=== PATIENT | female | born 1980 | race Caucasian/White ===

== ENCOUNTER 2021-10-28 11:16 | Day surgery (SDC) | payer BC ==
[2021-10-24 09:15] VITALS: BMI 34.4
[~2021-10-28 11:16] MED LIST: HYDROmorphone 0.5 MG/0.5 ML SYRINGE IVP PRN; LACTATED RINGERS 1,000 ML IV SCH; LIDOCAINE 1% (10MG/ML) FOR IV START INTRADERMA PRN; ONDANSETRON 4 MG/2 ML VIAL IVP PRN
[2021-10-28 11:49] VITALS: TEMP 97.2
[2021-10-28] MEDS ORDERED: PROPOFOL 10 MG/ML 20 ML VIAL IV ONE (12:17)
[2021-10-28 12:51] VITALS: RESP 18
[2021-10-28 12:59] LABS: Basophils # (A) 0.1 k/uL (0-0.2); Basophils % (A) 1 %; Eosinophils # (A) 0.4 k/uL (0-0.7); Eosinophils % (A) 3 %; HCT 40.8 % (34.0-46.0); HGB 14.1 gm/dL (11.4-16.0); Lymphocytes # (A) 2.7 k/uL (1.0-4.8); Lymphocytes % (A) 21 %; MCH 29.8 pg (25.0-35.0); MCHC 34.6 g/dL (31.0-37.0); MCV 86.2 fL (80.0-100.0); Mean Platelet Volume 8.5; Monocytes # (A) 0.8 k/uL (0-1.0); Monocytes % (A) 6 %; Neutrophils # (A) 8.8 k/uL (1.3-7.7); Neutrophils % (A) 68 %; Platelet Count 775 k/uL (150-450); RBC 4.73 m/uL (3.80-5.40); RDW 13.4 % (11.5-15.5); Reticulocyte % 2.2 % (0.5-2.0); WBC 12.8 k/uL (3.8-10.6)
[2021-10-28 13:07] VITALS: BP 116/75; PULSE 76
--- NOTE | 2021-10-28 13:38 | PCN ---
PROCEDURE NOTE DATE OF SERVICE: October 28, 2021. PROCEDURE: Bone marrow aspirate and biopsy. INDICATION: Persistent leukocytosis and thrombocytosis. The patient has a history of splenectomy as well. DESCRIPTION OF PROCEDURE: After obtaining consent from the patient, the procedure was performed in the endoscopy suite under general anesthesia performed by anesthesia team. The patient was placed on the left lateral decubitus position. The right posterior superior iliac crest was localized. Skin was prepped with ChloraPrep, all sterile procedures were followed. About 2 mL of 2% Xylocaine was used for local anesthetic. Monoject needle was inserted. 10 mL aspirate and about 0.5 cm core biopsy was obtained without any difficulties. Pressure applied afterwards. There was negligible blood loss. Patient tolerated procedure very well without any immediate complications. MMODL / IJN: [id number] /
== END 2021-10-28 13:22 | disposition home or self-care (01) ==
LOC: OR 11:16
PROVIDERS: ATTEND Internal Medicine Hematology & Oncology
DX: D72.829 Elevated white blood cell count, unspecified (principal); D75.839 Thrombocytosis, unspecified
CPT/HCPCS: 38222; 81025; 85025; 85045; J2704

== ENCOUNTER → 2022-05-22 | Outpatient (CLI) | payer OTHER ==
--- NOTE | 2022-05-25 18:15 | MM ---
Reason for Exam: Screening (asymptomatic). Baseline mammogram. Patient History: Menarche at age 13. Last menstrual period: 05/19/2022 Risk Values: Yaima 5 year model risk: 0.4%. NCI Lifetime model risk: 7.3%. Prior Study Comparison: Patient's first Mammogram. No prior studies available for comparison. Tissue Density: The breast tissue is heterogeneously dense. This may lower the sensitivity of mammography. Findings: Analyzed By CAD. Upper outer quadrant anterior left breast warrants further magnification views. Nodularity central posterior left breast for which further evaluation is recommended. Additional nodular asymmetric density medial subareolar right cc view without clear correlate on the MLO view. Prominent rounded but nonenlarged lymph node right axillary tail measuring 1.0 cm. Overall Assessment: Incomplete: need additional imaging evaluation, BI-RAD 0 Management: Special View Mammogram of both breasts. Diagnostic Breast Ultrasound of both breasts. Additional views to include magnification and 3-D lateral views for the left breast microcalcifications. Additional spot compression views for the posterior left breast nodularity. Also, additional views right breast to include spot 3-D CC, 3-D CC rolled lateral, and 3-D lateral views. Bilateral whole breast ultrasound. Particular attention to the right medial subareolar region, right axillary tail, and posterior central left breast. [facility] will attempt to contact patient to return for supplemental views and ultrasound if indicated. Electronically signed and approved by: Marcel Hernandez M.D. Radiologist
== END | disposition home or self-care (01) ==
LOC: RADMAMWWP 14:21
PROVIDERS: ATTEND Family Medicine
DX: Z12.31 Encounter for screening mammogram for malignant neoplasm of breast (principal)
CPT/HCPCS: 77067

== ENCOUNTER → 2022-06-03 | Outpatient (CLI) | payer OTHER ==
--- NOTE | 2022-06-03 17:01 | USB ---
Reason for Exam: Additional evaluation requested from abnormal screening. Patient History: Menarche at age 13. Patient has no children. Risk Values: Yaima 5 year model risk: 0.7%. NCI Lifetime model risk: 11.0%. Technique: Method: Whole Breast Handheld. Prior Study Comparison: 05/22/2022 Bilateral MG screening mammo w CAD, [facility]. Findings: The whole breast of both breasts, the axilla of both breasts and the retroareolar of both breasts were scanned. Within the right breast 3 cm from the nipple 12:00 position is a 0.9 x 0.4 x 0.7 cm anechoic nodule with good through transmission. Small cyst. An additional cyst is at the 3:00 position 5 cm from the nipple measuring 1.0 x 0.8 x 1.2 cm. 2 large cyst with good through transmission and posterior wall enhancement at the 8:00 position 7 cm from the nipple measuring 2.3 x 1.7 x 2.2 cm at the 9:00 position 5 cm from the nipple measuring 3.5 x 2.5 x 3.1 cm. Within the left breast 3:00 position is an irregular cystlike area 5 cm nipple measuring 1.3 x 0.7 x 1.1 cm. At the 3:00 position 7 cm from the nipple is a 2.0 x 0.9 x 1.6 cm cystlike area. In the posterior left breast 5:00 position 12 cm from the nipple is a elongated hypoechoic area with a solid nodule. This measures 1.8 x 0.3 cm. The small solid-appearing component measures 0.3 cm. This may correlate with the mammographic finding posterior left breast. Biopsy of this area is recommended with post clip placement correlation. Overall Assessment: Suspicious, BI-RAD 4 Management: Ultrasound Core Biopsy of the left breast. A clinical breast exam by your physician is recommended on an annual basis and results should be correlated with mammographic findings. This exam should not preclude additional follow-up of suspicious palpable abnormalities. Results were given to the patient verbally at the time of exam. Electronically signed and approved by: Jamie Barnes D.O. Radiologis
--- NOTE | 2022-06-05 08:33 | MM ---
Reason for Exam: Additional evaluation requested from abnormal screening. Last screening mammogram was performed less than 1 month ago. Patient History: Menarche at age 13. Patient has no children. Last menstrual period: 05/18/2022 Risk Values: Yaima 5 year model risk: 0.7%. NCI Lifetime model risk: 11.0%. Prior Study Comparison: 05/22/2022 Bilateral MG screening mammo w CAD, [facility]. Tissue Density: The breast tissue is extremely dense which could obscure a lesion on mammography. Findings: Analyzed By CAD. Parenchymal pattern is essentially stable. There is a persistent density in the posterior left middle breast. Ultrasound of this area is recommended. There is a heterogenous group of calcifications in the upper outer aspect left breast these are highly suggestive of malignancy biopsy is recommended. Large rounded densities with partially obscured margins or within the right breast. The largest measures 3.6 cm in the inferior lateral anterior portion. Ultrasound of this area is recommended. Overall Assessment: Highly suggestive of malignancy, BI-RAD 5 Management: Stereotactic Core Biopsy of the left breast. Diagnostic Breast Ultrasound of both breasts. A negative mammogram report should not preclude additional follow up of suspicious palpable abnormalities. Patient should continue monthly self breast exam. A clinical breast exam by your physician is recommended on an annual basis and results should be correlated with mammographic findings. Electronically signed and approved by: Jamie Barnes D.O. Radiologis
== END | disposition home or self-care (01) ==
LOC: RADMAMWWP 15:00
PROVIDERS: ATTEND Family Medicine
DX: R92.8 Other abnormal and inconclusive findings on diagnostic imaging of breast (principal)
CPT/HCPCS: 77066

== ENCOUNTER → 2022-06-15 | Day surgery (SDC) | payer OTHER ==
[2022-06-15 11:46] VITALS: BP 122/84; PULSE 80; RESP 16; TEMP 98.2
--- NOTE | 2022-06-19 11:02 | MM ---
Risk Values: Yaima 5 year model risk: 1.1%. NCI Lifetime model risk: 13.4%. Prior Study Comparison: 05/22/2022 Bilateral MG screening mammo w [facility]. 06/03/2022 Bilateral MG work up mamm w CAD [facility]. Pathology Description: Location: upper outer quadrant. Marker Left Behind. Specimen Radiograph. Calcium Found: Yes Approach: Lateral to Medial Needle Type: Eviva Cores: 7 Skin Nicks: 1 Gauge: 9 The procedure of stereotactic guided core biopsy was explained to the patient. Benefits, alternatives, and risks were discussed. An informed consent was then obtained. The shortness pathway for biopsy was chosen. Shortness pathway was lateral approach. I performed the localization and procedure. A vacuum assisted biopsy gun was used to obtain multiple core samples. The patient tolerated the procedure well without any immediate complication. The patient was kept in the radiology department for short stay after the procedure and then discharged home in stable condition. Targeted calcifications are identified in specimen mammogram. Post biopsy mammogram shows the clip to appear in satisfactory position relative to the targeted area of concern on the preprocedure images. Impression: SUCCESSFUL, UNCOMPLICATED STEREOTACTIC GUIDED CORE BIOPSY OF AREA OF CONCERN IN THE LEFT BREAST. Pathology Results: Result: Malignant, Ductal carcinoma in situ, comedo type. 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 See Surgical Pathology Cancer Case Summary and Comment. Overall Assessment: Malignant Management: Surgical Consultation of the left breast. Electronically signed and approved by: Kemal Gallo D.O.
== END ==
LOC: RADMAMWWP 09:59
PROVIDERS: ATTEND Surgery
DX: D05.12 Intraductal carcinoma in situ of left breast (principal); Z17.0 Estrogen receptor positive status [ER+]; N64.1 Fat necrosis of breast; R92.1 Mammographic calcification found on diagnostic imaging of breast
CPT/HCPCS: 88305; 88342; 88341; 19081; A4648; J2001

== ENCOUNTER → 2022-06-15 | Day surgery (SDC) | payer OTHER ==
--- NOTE | 2022-06-19 10:59 | MM ---
Reason for Exam: Post Procedure Mammogram. Last screening mammogram was performed less than 1 month ago. Patient History: Menarche at age 13. Patient has no children. Risk Values: Yaima 5 year model risk: 0.7%. NCI Lifetime model risk: 11.0%. Prior Study Comparison: 05/22/2022 Bilateral MG screening mammo w [facility]. 06/03/2022 Bilateral MG work up mamm w CAD [facility], [facility]. Tissue Density: Left: The breast tissue is extremely dense which could obscure a lesion on mammography. Pathology Description: Location: 5 o'clock, lower outer quadrant. The procedure of ultrasound guided core biopsy was explained to the patient. Benefits, alternatives, and risks were discussed. An informed consent was then obtained. The patient was placed in supine positioning for imaging and for the procedure. The overlying skin was prepped and draped in usual sterile fashion. Lidocaine buffered with epinephrine was used as anesthetic into the skin and subcutaneous tissue up to area of concern in the left breast. Under ultrasound guidance, a 12-gauge vacuum assisted biopsy gun device was used to obtain 4 core samples. Following this, a biopsy clip (coil) was left in lesion. The patient tolerated the procedure well without any immediate complication. The patient was kept in the radiology department for short stay after the procedure and then discharged home in stable condition. Postprocedure mammogram: The patient was transferred to mammography for physician ordered post procedure mammogram for clip placement verification. Impression: Successful, uncomplicated ultrasound guided core biopsy of area of concern in the left breast, full pathology results to follow. Pathology Results: Result: Benign, Fibrocystic change. LEFT BREAST, FIVE O'CLOCK, ULTRASOUND GUIDED NEEDLE CORE BIOPSY: Benign breast with fibrocystic changes. Overall Assessment: Benign Assessment: MG diagnostic mammo LT wo CAD. - Left: Benign, BI-RAD 2. Management: Diagnostic Breast Ultrasound of the left breast in 6 months. Electronically signed and approved by: Preston Fairbanks
== END ==
LOC: RADUSWWP 10:03
PROVIDERS: ATTEND Surgery
DX: N60.12 Diffuse cystic mastopathy of left breast (principal)
CPT/HCPCS: 88305; 77065; 19083; A4648

== ENCOUNTER → 2022-08-13 | Outpatient (CLI) | payer OTHER | END | disposition home or self-care (01) | LOC: LABWHC1 09:10 | PROVIDERS: ATTEND Radiology Radiation Oncology | DX: C50.412 Malignant neoplasm of upper-outer quadrant of left female breast (principal) | CPT/HCPCS: 81025 ==

== ENCOUNTER 2022-08-21 09:33 | Day surgery (SDC) | payer OTHER ==
[2022-08-18 15:38] VITALS: BMI 37.5
[~2022-08-21 09:33] MED LIST changes: +ACETAMINOPHEN TAB 500 MG TAB PO PRN; +HEPARIN SODIUM,PORCINE/PF 5,000 UNIT/0.5 ML SYRINGE SQ PRN; -HYDROmorphone 0.5 MG/0.5 ML SYRINGE IVP PRN; -LACTATED RINGERS 1,000 ML IV SCH; -LIDOCAINE 1% (10MG/ML) FOR IV START INTRADERMA PRN; -ONDANSETRON 4 MG/2 ML VIAL IVP PRN; +Pre Op ABX Message 1 EACH MISC MISCELLANE ONE
[2022-08-21] MEDS ORDERED: LACTATED RINGERS 1,000 ML IV ONE (10:20)
[2022-08-21] MEDS ORDERED: DEXAMETHASONE SOD PHOSPHATE 4 MG/ML 1 ML VIAL IVP ONE (10:20)
[2022-08-21] MEDS ORDERED: ONDANSETRON 4 MG/2 ML VIAL ONE (10:22)
--- NOTE | 2022-08-21 10:48 | P.GSHP ---
History of Present Illness H&P Date: 08/21/22 Chief Complaint: Left breast cancer 41-year-old female with recent diagnosis of left breast DCIS. The patient underwent recent lumpectomy. The anterior margin was quite close. For that reason the patient is here for re-lumpectomy today. No other complaints. Past Medical History Past Medical History: Cancer, GERD/Reflux Additional Past Medical History / Comment(s): left breast cancer History of Any Multi-Drug Resistant Organisms: None Reported Past Surgical History: Orthopedic Surgery Additional Past Surgical History / Comment(s): SPLEENECTOMY 2000. GANGLION CYSTS REMOVED -LT WRIST. LT BREAST LUMPECTOMY-07/24/22 Past Anesthesia/Blood Transfusion Reactions: No Reported Reaction Smoking Status: Former smoker - Past Family History Mother Family Medical History: No Reported History Medications and Allergies Home Medications Medication Instructions Recorded Confirmed Type Esomeprazole Magnesium [NexIUM] 20 mg PO DAILY 06/04/22 08/21/22 History Allergies Allergy/AdvReac Type Severity Reaction Status Date / Time No Known Allergies Allergy Verified 08/18/22 15:31 Surgical - Exam Vital Signs Temp Pulse Resp BP Pulse Ox 97.4 F L 82 14 130/64 98 08/21/22 10:20 08/21/22 10:20 08/21/22 10:20 08/21/22 10:20 08/21/22 10:20 Physical exam: General: Well-developed, well-nourished HEENT: Normocephalic, sclerae nonicteric Right breast: No masses or adenopathy Left breast: Previous scars noted Abdomen: Nontender, nondistended Extremities: No edema Neuro: Alert and oriented Assessment and Plan (1) Breast cancer, left Narrative/Plan: 41-year-old female with left breast DCIS. Patient has a close anterior margin. Her today for reexcision. We'll proceed with re-lumpectomy. Risks of bleeding, infection, scarring, numbness, recurrence, possible need for further surgery. She understands and wishes to proceed. Current Visit: No Status: Acute Code(s): C50.912 - MALIGNANT NEOPLASM OF UNSPECIFIED SITE OF LEFT FEMALE BREAST SNOMED Code(s): 912375663
[2022-08-21] MEDS ORDERED: BUPIVACAIN-EPI 0.25%-1:200,000 30 ML VIAL SQ ONE ×2 (11:37→12:12)
[2022-08-21] MEDS ORDERED: PHENYLEPHRINE-0.9% NACL SYG 1,000 MCG/10 ML SYRINGE ONE (11:38)
[2022-08-21] MEDS ORDERED: PROPOFOL 10 MG/ML 20 ML VIAL IV ONE (11:38)
[2022-08-21] MEDS ORDERED: MIDAZOLAM 2 MG/2 ML VIAL ONE (11:38)
[2022-08-21] MEDS ORDERED: HYDROmorphone (PF) 1 MG/ML ONE (11:38)
[2022-08-21] MEDS ORDERED: LIDOCAINE 2% INJ 20 MG/ML (2 ML VIAL) ONE (11:38)
[2022-08-21] MEDS ORDERED: fentaNYL (PF) 50 MCG/ML 2 ML AMP ONE (11:38)
[2022-08-21] MEDS ORDERED: KETOROLAC 15 MG/ML 1 ML VIAL ONE (11:38)
[2022-08-21] MEDS ORDERED: SODIUM CHLORIDE 0.9% 50 ML with ceFAZolin 2,000 MG IV ONE ×2 (11:52)
[2022-08-21] MEDS ORDERED: BUPIVACAINE (PF) 0.25% 30 ML VIAL SQ ONE (12:22)
[2022-08-21 12:39] VITALS: TEMP 97
[2022-08-21] MEDS ORDERED: HYDROcodone/APAP 5-325MG 1 EACH TAB PO PRN (12:40)
[2022-08-21] MEDS ORDERED: NALOXONE 0.4 MG/ML 1 ML VIAL IV PRN (12:40)
--- NOTE | 2022-08-21 12:46 | P.OP ---
Date of Procedure: 08/21/22 Procedure(s) Performed: PREOPERATIVE DIAGNOSIS: Left breast cancer POSTOPERATIVE DIAGNOSIS: Same PROCEDURE: Left breast re-lumpectomy SURGEON: Umesh EBL: 10 mL ANESTHESIA: Gen. COMPLICATIONS: None OPERATIVE PROCEDURE: Patient placed on the operating table in the supine position. The patient's left breast was prepped and draped sterilely. The previous incision in the periareolar location was re-incised. Dissection through the subcutaneous tissues took place primarily using blunt dissection. The previous Vicryl sutures were removed. The lumpectomy cavity was encountered. The seroma was evacuated. A new anterior margin was taken. The anterior margin was extended slightly in a superior inferior medial and lateral direction. The new margin was painted blue. This was sent to pathology for permanent sectioning. The operative site was inspected. No bleeding was seen. The subcutaneous tissues were again closed using interrupted 20 and 3-0 Vicryl sutures. The skin was closed using interrupted 4-0 Monocryl sutures. Skin glue was applied. DISPOSITION: Stable to recovery room
[2022-08-21 14:04] VITALS: BP 123/86; PULSE 78; RESP 18
== END 2022-08-21 15:03 | disposition home or self-care (01) ==
LOC: OR 09:33
PROVIDERS: ATTEND Surgery
DX: D05.12 Intraductal carcinoma in situ of left breast (principal); K21.9 Gastro-esophageal reflux disease without esophagitis; Z85.3 Personal history of malignant neoplasm of breast; Z87.891 Personal history of nicotine dependence; Z79.899 Other long term (current) drug therapy
CPT/HCPCS: 81025; 88307; 19301; J2250; J1100; J2405; J0690; J3010; J1170; J1885; J2370; J2704; J1644; J2001

== ENCOUNTER → 2023-05-26 | Outpatient (CLI) | payer OTHER ==
--- NOTE | 2023-05-26 08:39 | MM ---
Reason for Exam: Hx of breast cancer, conservation therapy. Last screening mammogram was performed 11 month(s) ago. Patient History: Menarche at age 13. Patient has no children. Breast cancer, left, age 41. Breast cancer, left, age 41. Currently using Tamoxifen, for 7 months. 07/24/2022, Lumpectomy on the Left side. 07/24/2022, Malignant MG pre op needle loc LT on the left side. 06/15/2022, Benign US biopsy breast VAD LT on the left side. 06/15/2022, Malignant MG stereo VAD BX LT on the left side. Last menstrual period: 05/10/2023 Tissue Density: The breast tissue is heterogeneously dense. This may lower the sensitivity of mammography. Findings: Analyzed By CAD. Left breast surgical clips. A left breast biopsy clip is also present. Benign-appearing calcifications in the right breast. There is no new suspicious group of microcalcifications or new suspicious mass. No new suspicious masses, calcifications or distortions. Overall Assessment: Benign, BI-RAD 2 Management: Diagnostic Mammogram of both breasts in 1 year. Results were given to the patient verbally at the time of exam. Patient should continue monthly self-breast exams. A clinical breast exam by your physician is recommended on an annual basis. This exam should not preclude additional follow-up of suspicious palpable abnormalities. Note on Yaima scores and lifetime risk: 1. A Yaima score greater than 3% is considered moderate risk. If this is the case, consider specialist referral to assess eligibility for a risk reducing agent. 2. If overall lifetime risk for the development of breast cancer is 20% or higher, the patient may qualify for future screening with alternating mammogram and breast MRI. Electronically signed and approved by: Adama Mirza DO
== END | disposition home or self-care (01) ==
LOC: RADMAMWWP 08:10
PROVIDERS: ATTEND Surgery
DX: R92.333 Mammographic heterogeneous density, bilateral breasts (principal); R92.1 Mammographic calcification found on diagnostic imaging of breast; Z85.3 Personal history of malignant neoplasm of breast
CPT/HCPCS: 77062; 77066

== ENCOUNTER → 2024-05-29 | Outpatient (CLI) | payer BC ==
--- NOTE | 2024-05-29 14:06 | MM ---
Reason for Exam: Hx of breast cancer, conservation therapy. Last screening mammogram was performed 12 month(s) ago. Patient History: Menarche at age 13. Patient has no children. Breast cancer, left, age 41. Breast cancer, left, age 41. Currently using Tamoxifen, for 7 months. 07/24/2022, Lumpectomy on the Left side. 07/24/2022, Malignant MG pre op needle loc LT on the left side. 06/15/2022, Benign US biopsy breast VAD LT on the left side. 06/15/2022, Malignant MG stereo VAD BX LT on the left side. 08/21/2022, Radiation Therapy on the left side. Last menstrual period: 05/28/2024 Prior Study Comparison: 05/22/2022 Bilateral MG screening mammo w CAD, [facility]. 06/03/2022 Bilateral MG work up mamm w CAD BILAT, [facility]. 06/03/2022 Bilateral US breast workup ANTOINETTE, [facility]. 06/15/2022 Left MG diagnostic mammo LT wo CAD., [facility]. 07/06/2022 Bilateral MR breast bilat wo/w con, [facility]. 05/26/2023 Bilateral MG 3D diag mammo w/cad ANTOINETTE, [facility]. Tissue Density: The breasts are heterogeneously dense, which may obscure small masses. Findings: Analyzed By CAD. The pattern is symmetrical. Pattern appears stable. Skin thickening of the left breast is again evident. Core markers within the left breast. Left breast surgical lumpectomy clips are present. No suspicious groups of microcalcifications, spiculated or lobular masses, architectural distortion or other secondary signs of malignancy are mammographically apparent. Overall Assessment: Benign, BI-RAD 2 Management: Diagnostic Mammogram of both breasts in 1 year. A negative mammogram report should not preclude additional follow up of suspicious palpable abnormalities. Patient should continue monthly self breast exam. A clinical breast exam by your physician is recommended on an annual basis and results should be correlated with mammographic findings. Note on Yaima scores and lifetime risk: 1. A Yaima score greater than 3% is considered moderate risk. If this is the case, consider specialist referral to assess eligibility for a risk reducing agent. 2. If overall lifetime risk for the development of breast cancer is 20% or higher, the patient may qualify for future screening with alternating mammogram and breast MRI. [facility], , 05/29/2024 2:01 PM. Electronically signed and approved by: Jamie Barnes D.O. Radiologis
== END | disposition home or self-care (01) ==
LOC: RADMAMWWP 13:02
PROVIDERS: ATTEND Surgery
DX: C50.412 Malignant neoplasm of upper-outer quadrant of left female breast (principal); R92.333 Mammographic heterogeneous density, bilateral breasts; Z85.3 Personal history of malignant neoplasm of breast; Z17.0 Estrogen receptor positive status [ER+]
CPT/HCPCS: 77062; 77066